=== PATIENT | female | born 1990 | race African-American/Black ===

== ENCOUNTER 2019-09-18 15:14 | Emergency (ER) | payer OTHER, SELFPAY ==
--- NOTE | ~2019-09-18 | XR_ITS ---
EXAMINATION: XR chest 2V EXAM DATE: 09/18/2019 16:02 INDICATION: Chest tightness. TECHNIQUE: Frontal and lateral projections of the chest obtained and reviewed. There is no prior tonio dy for comparison. FINDINGS: The lungs are clear. There are no pleural effusions. The cardiomediastinal silhouette is within normal limits. There is no pneumothorax suspected. The bones and soft tissues are unremarkab le. IMPRESSION: Normal chest x-ray exam. Reviewed, dictated and finalized at location A. IMPRESSION: Normal chest x-ray exam.
[2019-09-18 15:26] VITALS: BP 112/65; PULSE 74; RESP 14; TEMP 36.6; O2SAT 100
--- NOTE | 2019-09-18 15:33 | ECG_ITS ---
Measurements Intervals [place] Rate: 75 P: 58 MI: 152 QRS: 68 QRSD: 90 T: -5 QT: 373 QTc: 417 Interpretive Statements SINUS RHYTHM WITH SINUS ARRHYTHMIA BORDERLINE ST-T WAVE ABNORMALITY- INFERIOR LEADS BASELINE WANDER- I, II, AVR, AVL, AVF, V4-V6 BORDERLINE ECG Electronically Signed On 09-18-2019 16:48:22 CDT by Jamey Monson D.O.
--- NOTE | 2019-09-18 15:33 | ED.CHESTPAIN ---
HPI - Chest Pain General Chief Complaint: Chest Pain Stated Complaint: Chest Pain Time Seen by Provider: 09/18/19 15:33 Source: patient and RN notes reviewed Mode of arrival: ambulatory Limitations: no limitations History of Present Illness HPI narrative: 29-year-old -[place] female presents with complains of being stressed (feeling overwhelmed due to work and personal matters) and having intermittent episodes of having chest tightness and having difficulty of catching breath when having chest tightness, last episode was 6.5 hours ago. Neal is on 60mg of Fluoxetine for anxiety and has been for 1.5 years. Has been feeling anxious and stressed at work and home. Mother recently diagnosis with breast cancer and she has to assist with her care. Sleep disturbance. Denies suicidal ideation, homicidal ideation, auditory and visual hallucinations. Denies having immediately family dying of sudden heart disease early in life. Denies family history of cardiac issue. Family history of diabetes and hypertension, in paternal grandmother. Denies diaphoresis, dizziness, syncopal, head or chest trauma, altered mental status change or vision, altered speech, confusion, or seizure activity. Denies using recreational drug or ETOH. The patient reports she have not been diagnosed with COVID-19. The patient reports she is not waiting for the results of a COVID-19 lab test. The patient reports she do not have fever, chills, or weakness. The patient reports she do not have a new or worsening cough. The patient reports she do not have any rhinorrhea, congestion, sore throat, nausea, vomiting, abdominal pain, and diarrhea. Tolerating po intake well. Denies recent traveling. Denies concerns for COVID-19 or exposures been home with limited outdoor exposure except for essential household needs, work, and return home. At this time, patient is not suspected of having COVID-19. Some parts of this dictation were generated by voice recognition software and may contain typographical and/or grammatical inaccuracies. Related Data Home Medications Medication Instructions Recorded Confirmed fluoxetine 60 mg PO DAILY 09/18/19 09/18/19 Allergies Allergy/AdvReac Type Severity Reaction Status Date / Time No Known Allergies Allergy Verified 09/18/19 15:34 Review of Systems Review of Systems: Narrative: CONSTITUTIONAL: Denies fever, chills, sweats. EYES: Denies visual changes, redness, discharge. ENT: Denies rhinorrhea, congestion, sore throat, otalgia. CARDIOVASCULAR: Complains of intermittent chest tightness. Denies palpitations, edema. RESPIRATORY: Denies dyspnea, wheezing, cough. Complains of intermittent episodes of having difficulty of catching his breath. GASTROINTESTINAL: Denies abdominal pain, nausea, vomiting, diarrhea. GENITOURINARY: Denies dysuria, hematuria, abnormal discharge SKIN: Denies rash or itching. MUSCULOSKELETAL: Denies acute back pain, joint pain, or myalgia. NEUROLOGIC: Denies numbness or focal weakness. PSYCHIATRIC: Denies depression. Denies suicidal or homicidal thoughts. Complains of of being anxious, stressed, and feeling overwhelmed. All other systems reviewed & are unremarkable except as noted in HPI and below. [facility] Past Medical History Medical History (Updated 09/19/19 @ 00:00 by Aileen Hartman) Abnormal Pap smear of cervix Anxiety Bronchitis Surgical History Surgical History (Updated 09/18/19 @ 16:28 by CHEIKH Sterling) History of cervical biopsy Family History Family History (Updated 09/18/19 @ 16:28 by CHEIKH Sterling) Father Alive and well Mother Breast cancer Social History Social History (Updated 09/18/19 @ 16:29 by CHEIKH Sterling) Smoking status: Never smoker Tobacco type: cigarettes Second hand tobacco smoke exposure: No Alcohol intake: current Substance use: never Living arrangements: with family Occupation/Education: occupation Gender identity (if
== END 2019-09-18 16:23 | disposition home or self-care (01) ==
PROVIDERS: Emergency Provider Nurse Practitioner Family
DX: M94.0 Chondrocostal junction syndrome [Tietze] (principal)
CPT/HCPCS: 71046; 93005; 99213; G0463

== ENCOUNTER 2020-06-30 18:07 | Emergency (ER) | payer OTHER, SELFPAY ==
[2020-06-30 18:12] VITALS: BP 134/82; PULSE 84; RESP 16; TEMP 36.3; O2SAT 100
--- NOTE | 2020-06-30 18:12 | ED.LOWEXIN ---
HPI - Extremity Injury (Lower) General Stated Complaint: back and left knee pain Time Seen by Provider: 06/30/20 18:12 Source: patient and RN notes reviewed History of Present Illness HPI Narrative: Patient is a 30-year-old female who presents the urgent care with complaints of low back and left knee pain. 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 Patient states that they did not give her anything for pain and she has not done any physical therapy or had an MRI completed on the left knee. Patient states that the long hours she is working with multiple steps and uneven grounds have been making it worse. Patient states that she has not had any new injury or falls. States that on June 14 she did have a Medrol Dosepak and was taking naproxen with mild relief. Patient has also been using Tylenol/ibuprofen as needed. No other acute complaints. No acute distress noted. Patient aware of the plan of care. Some parts of this dictation were generated by voice recognition software and may contain typographical and/or grammatical inaccuracies. Related Data Home Medications Medication Instructions Recorded Confirmed amitriptyline 10 mg PO DAILY PRN 06/30/20 06/30/20 Allergies Allergy/AdvReac Type Severity Reaction Status Date / Time No Known Allergies Allergy Verified 06/30/20 18:29 Review of Systems Review of Systems: Narrative: CONSTITUTIONAL: Denies fever, chills, or sweats. EYES: Denies visual changes, redness, or discharge. ENT: Denies rhinorrhea, congestion, sore throat, or otalgia. CARDIOVASCULAR: Denies chest pain, palpitations, or edema. RESPIRATORY: Denies cough or dyspnea. GASTROINTESTINAL: Denies abdominal pain, nausea, vomiting, or diarrhea. GENITOURINARY: Denies dysuria or hematuria. SKIN: Denies rash or itching. MUSCULOSKELETAL: Reports of low back and left knee pain NEUROLOGIC: Denies headache, numbness, or weakness. All other systems reviewed are negative, except as documented in HPI. [facility] Past Medical History Medical History (Updated 06/30/20 @ 18:28 by CHEIKH Christopher) Abnormal Pap smear of cervix Anxiety Bronchitis Surgical History Surgical History (Updated 09/18/19 @ 16:28 by CHEIKH Sterling) History of cervical biopsy Family History Family History (Updated 09/18/19 @ 16:28 by CHEIKH Sterling) Father Alive and well Mother Breast cancer Social History Social History (Updated 09/18/19 @ 16:29 by CHEIKH Sterling) Smoking status: Never smoker Tobacco type: cigarettes Second hand tobacco smoke exposure: No Alcohol intake: current Substance use: never Gender identity (if verbalized by the patient): Female Comments At the time of my signature, I reviewed and agree with the nursing past medical, surgical, social, and family history. There is no relevant family history pertinent to the patient complaint. Exam Narrative: Exam Narrative: GENERAL: This is a well-nourished, well-developed patient, in no apparent distress. HEAD: normocephalic, atraumatic. EYES: PERRL. Sclera clear/white. Vision is grossly intact. EARS: External ears normal NOSE: External nose normal with no obvious nasal discharge, nares without redness, no rhinorrhea. THROAT: Mucous membranes moist NECK: Neck supple CARDIOVASCULAR: Regular rate and rhythm without murmurs, gallops, or rubs. RESPIRATORY: Clear to auscultation. Breath sounds equal bilaterally. No wheezes, rales, or rhonchi. SKIN: warm, intact with no suspicious lesions or rash, good texture and turgor. NEURO: awake, alert, and oriented to person, place and time. There were no obvious focal neurologic abnormalities. EXTREMITIES: No obvious edema, ecchymosis or erythema noted to the left knee. Negative drawer test. Positive strong left pedal pulse with capillary refill less than 2 seconds. R
== END 2020-06-30 18:32 | disposition home or self-care (01) ==
PROVIDERS: Emergency Provider Nurse Practitioner Family
DX: S39.012A Strain of muscle, fascia and tendon of lower back, initial encounter (principal); X50.3XXA Overexertion from repetitive movements, initial encounter; Y99.0 Civilian activity done for income or pay; M54.32 Sciatica, left side; M25.562 Pain in left knee; F41.9 Anxiety disorder, unspecified
CPT/HCPCS: 99213; G0463